=== PATIENT | male | born 1985 | race African-American/Black ===

== ENCOUNTER 2020-07-14 02:31 | Emergency (ER) | payer SELFPAY ==
[2020-07-14] MEDS ORDERED: Fluorescein Opthalmic Strip ONE (04:07)
[2020-07-14] MEDS ORDERED: Proparacaine 0.5% Opth 15 ML BOT ONE (04:07)
== END 2020-07-14 04:30 | disposition home or self-care (01) ==
LOC: ERS 02:31
DX: S02.832A Fracture of medial orbital wall, left side, initial encounter for closed fracture (principal); I10 Essential (primary) hypertension; F17.210 Nicotine dependence, cigarettes, uncomplicated; W50.0XXA Accidental hit or strike by another person, initial encounter
CPT/HCPCS: 70486

== ENCOUNTER 2020-08-06 13:47 | Observation (INO) | payer SELFPAY ==
[2020-08-06 15:15] LABS: #Basophils 0.1 thou/uL (0.0-0.2); #Eosinphils 0.1 thou/uL (0.0-0.7); #Lymphocytes 2.6 thou/uL (1.20-3.40); #Monocytes 0.8 thou/uL (0.11-0.59); #Neutrophils 6.6 thou/uL (1.40-6.50); %Basophils 1.4 % (0.0-1.0); %Eosinophils 0.9 % (0.0-10.0); %Lymphocytes 25.5 % (21.0-51.0); %Monocytes 7.3 % (0.0-10.0); %Neutrophils 64.8 % (42.0-75.0); Hemoglobin 13.8 g/dL (14.0-18.0); Mean Corpuscular HGB CONC 31.3 g/dL (32.0-36.0); Mean Corpuscular Hemoglobin 27.7 pg (27.0-31.0); Mean Corpuscular Volume 88.3 fL (78.0-98.0); Mean Platelet Volume 9.4 fL (7.4-10.4); Platelet Count 215 thou/uL (130-400); Red Blood Cell (RBC) Count 4.99 mill/uL (4.70-6.10); White Blood Cell (WBC) Count 10.2 thou/uL (4.8-10.8)
[2020-08-06 15:39] LABS: ALT (SGPT) 9 U/L (8-55); AST (SGOT) 16 U/L (5-34); Albumin 3.8 g/dL (3.5-5.0); Alkaline Phosphatase 70 U/L (40-110); Anion Gap 12 mmol/L (10-20); BUN (Urea Nitrogen) 13 mg/dL (8.9-20.6); Bilirubin, Total 0.4 mg/dL (0.2-1.2); CK (CPK) 194 U/L (30-200); Calc. Creatinine Clearance 0 mL/min (70-130); Calcium 8.9 mg/dL (7.8-10.44); Carbon Dioxide 23 mmol/L (22-29); Chloride 109 mmol/L (98-107); Globulin 3.3 g/dL (2.4-3.5); Glucose 87 mg/dL (70-105); Protein, Total 7.1 g/dL (6.0-8.3); Sodium 140 mmol/L (136-145)
[2020-08-06] MEDS ORDERED: hydrALAZINE 20 MG/ML VIAL ONE (15:53)
[2020-08-06 16:01] LABS: CKMB 2.5 ng/mL (0-6.6)
[2020-08-06] MEDS ORDERED: Aspirin Chewable 81 MG TAB ONE (16:04)
[2020-08-06] MEDS ORDERED: Nitroglycerin 2% Ointment 1 INCH/1 GM Packet ONE (16:34)
[2020-08-06] MEDS ORDERED: Labetalol HCl 100 MG/20 ML VIAL ONE ×2 (17:55→17:57)
[2020-08-06] MEDS ORDERED: Acetaminophen 500 MG TAB ONE (18:22)
[2020-08-06] MEDS ORDERED: Acetaminophen 650 MG Suppository PR PRN (18:29)
[2020-08-06 18:34] LABS: Troponin I 0.026 ng/mL (< 0.028)
[2020-08-06] MEDS ORDERED: hydrALAZINE 20 MG/ML VIAL SLOW IVP PRN (18:37)
[2020-08-06 21:28] LABS: Troponin I 0.031 ng/mL (< 0.028)
[2020-08-06 21:36] VITALS: BMI 29.2
[2020-08-07] MEDS: Acetaminophen 325 MG TAB PO PRN ×2 (01:52→14:01)
[2020-08-07] MEDS ORDERED: Sodium Chloride 0.45% 1,000 ML IV SCH (02:15)
[2020-08-07] MEDS ORDERED: Amlodipine 5 MG TAB PO SCH (02:15)
[2020-08-07 02:34] LABS: #Basophils 0.1 thou/uL (0.0-0.2); #Eosinphils 0.1 thou/uL (0.0-0.7); #Lymphocytes 3.1 thou/uL (1.20-3.40); #Neutrophils 7.3 thou/uL (1.40-6.50); %Basophils 0.9 % (0.0-1.0); %Eosinophils 1.1 % (0.0-10.0); %Lymphocytes 26.9 % (21.0-51.0); %Monocytes 8.2 % (0.0-10.0); %Neutrophils 62.9 % (42.0-75.0); Hemoglobin 12.7 g/dL (14.0-18.0); Mean Corpuscular HGB CONC 30.4 g/dL (32.0-36.0); Mean Corpuscular Hemoglobin 26.8 pg (27.0-31.0); Mean Corpuscular Volume 88.2 fL (78.0-98.0); Mean Platelet Volume 9.1 fL (7.4-10.4); Platelet Count 205 thou/uL (130-400); Red Blood Cell (RBC) Count 4.74 mill/uL (4.70-6.10); White Blood Cell (WBC) Count 11.5 thou/uL (4.8-10.8)
[2020-08-07 02:54] LABS: Magnesium 1.8 mg/dL (1.6-2.6)
[2020-08-07 03:03] LABS: Anion Gap 14 mmol/L (10-20); BUN (Urea Nitrogen) 16 mg/dL (8.9-20.6); Calc. Creatinine Clearance 116 mL/min (70-130); Carbon Dioxide 23 mmol/L (22-29); Chloride 106 mmol/L (98-107); Cholesterol 155 mg/dl (< 200 Desired); Glucose 98 mg/dL (70-105); HDL Cholesterol 31 mg/dL (>60 Neg Risk); LDL Cholesterol, Calculated 107 mg/dL; Potassium 3.6 mmol/L (3.5-5.1); Sodium 139 mmol/L (136-145); Triglycerides 84 mg/dL (Less than 150)
[2020-08-07 03:17] LABS: CKMB 1.9 ng/mL (0-6.6)
[2020-08-07 04:48] LABS: Amphetamine Not Detected (NotDetected); Barbiturates Screen Not Detected (NotDetected); Benzodiazepine Screen Not Detected (NotDetected); Cocaine Metabolite Screen Not Detected (NotDetected); Medtox Control Line Valid? VALID (VALID); Medtox Reader # READER 1; Methadone Not Detected (NotDetected); Methamphetamine Not Detected (NotDetected); Opiate Screen Not Detected (NotDetected); Oxycodone Screen Not Detected (NotDetected); Phencyclidine (PCP) Not Detected (NotDetected); THC/Cannabinoid Screen Not Detected (NotDetected); Tricyclic Screen Not Detected (NotDetected)
[2020-08-07] MEDS ORDERED: Magnesium 2 GM/50 ML 2 GM in Premix Bag 1 BAG IVPB SCH (05:00)
[2020-08-07] MEDS ORDERED: hydrALAZINE 25 MG TAB PO SCH ×2 (12:00→15:00)
[2020-08-07 12:33] VITALS: BP 173/101; TEMP 98.2
[2020-08-08] MEDS ORDERED: Amlodipine 5 MG TAB PO SCH (09:00)
== END 2020-08-07 14:25 | disposition home or self-care (01) ==
LOC: ERS 13:47 → INTOOBSV 16:48 → ERHOLD 16:48 → 2SW 20:27
PROVIDERS: ADMIT Internal Medicine; ATTEND Internal Medicine
DX: I16.0 Hypertensive urgency (principal); I11.9 Hypertensive heart disease without heart failure; N17.9 Acute kidney failure, unspecified; F17.210 Nicotine dependence, cigarettes, uncomplicated; R51.9 Headache, unspecified; I08.3 Combined rheumatic disorders of mitral, aortic and tricuspid valves
CPT/HCPCS: 36415; 71045; 80048; 80053; 80061; 80306; 82550; 82553; 83735; 83880; 84484; 85025; 93005; 93306; 96374; 96375; G0378; J0360; J3475

== ENCOUNTER 2021-01-27 22:00 | Emergency (ER) | payer SELFPAY ==
[2021-01-27 22:39] LABS: Bacteria/HPF None Seen HPF (None Seen); Bilirubin Negative (Negative); Blood, Urine 1+ (Negative); Clarity Turbid (Clear); Glucose, Urine (Dipstick) Normal (Negative); Ketone, Urine Trace mg/dL (Negative); Leukocyte 500 Leu/uL (Negative); Nitrite Negative (Negative); Protein, Urine (Dipstick) 100 mg/dL (Neg-Trace); Specific Gravity, Urine 1.039 (1.002-1.036); Squamous Epithelial 0-3 HPF (0-3); WBC/HPF Greater than 50 HPF (0-3)
[2021-01-27] MEDS ORDERED: cefTRIAXone\\ROCEPHIN 500 MG VIAL ONE (22:53)
[2021-01-27] MEDS ORDERED: Sterile Water 10 ML ONE (22:53)
[2021-01-27] MEDS ORDERED: Lidocaine 1% PF 5 ML VIAL ONE (22:54)
[2021-01-30 20:36] LABS: Chlam.trachomatis by PCR,Urine DETECTED (NotDetected)
== END 2021-01-27 23:03 | disposition home or self-care (01) ==
LOC: ERS 22:00
DX: N34.2 Other urethritis (principal); I10 Essential (primary) hypertension; F17.210 Nicotine dependence, cigarettes, uncomplicated
CPT/HCPCS: 81003; 81015; 87491; 87591; 96372; 99283; J0696

== ENCOUNTER 2021-08-23 23:44 | Emergency (ER) | payer SELFPAY ==
[2021-08-24] MEDS ORDERED: cefTRIAXone\\ROCEPHIN 500 MG VIAL ONE (00:20)
[2021-08-24] MEDS ORDERED: Azithromycin 250 MG TAB ONE (00:20)
[2021-08-24] MEDS ORDERED: Lidocaine 1% PF 5 ML VIAL ONE (00:21)
[2021-08-24 00:51] LABS: Bacteria/HPF None Seen HPF (None Seen); Bilirubin Negative (Negative); Blood, Urine Trace (Negative); Clarity Clear (Clear); Glucose, Urine (Dipstick) Normal (Negative); Ketone, Urine Negative (Negative); Leukocyte 250 Leu/uL (Negative); Nitrite Negative (Negative); Protein, Urine (Dipstick) 30 mg/dL (Neg-Trace); RBC/HPF 0-3 HPF (0-3); Specific Gravity, Urine 1.023 (1.002-1.036); Squamous Epithelial None Seen HPF (0-3); Urobilinogen Normal mg/dL (Less than 2); WBC/HPF Greater than 50 HPF (0-3)
[2021-08-24 18:41] LABS: Chlam.trachomatis by PCR,Urine DETECTED (NotDetected)
== END 2021-08-24 00:45 | disposition home or self-care (01) ==
LOC: ERS 23:44
DX: N34.1 Nonspecific urethritis (principal); I10 Essential (primary) hypertension; F17.210 Nicotine dependence, cigarettes, uncomplicated
CPT/HCPCS: 81003; 81015; 87491; 87591; 96372; 99283; J0696

== ENCOUNTER 2021-09-18 14:22 | Emergency (ER) | payer SELFPAY ==
[2021-09-18] MEDS ORDERED: Ondansetron ODT 4 MG TAB ONE (14:53)
== END 2021-09-18 15:25 | disposition home or self-care (01) ==
LOC: ERS 14:22
DX: R11.10 Vomiting, unspecified (principal); I10 Essential (primary) hypertension; F17.210 Nicotine dependence, cigarettes, uncomplicated
CPT/HCPCS: 99283; Q0162

== ENCOUNTER 2021-10-28 05:30 | Inpatient (IN) | payer SELFPAY ==
[2021-10-28] MEDS ORDERED: niCARdipine 25 MG/10 ML VIAL ONE (09:58)
[2021-10-28] MEDS ORDERED: niCARdipine 25 MG in Sodium Chloride 0.9% 250 ML 250 ML IVPB SCH ×2 (10:15→11:30)
[2021-10-28] MEDS ORDERED: Acetaminophen 325 MG TAB PO PRN (11:17)
[2021-10-28] MEDS: hydrALAZINE 25 MG TAB PO SCH ×2 (15:08→20:47)
[2021-10-28] MEDS ORDERED: Ibuprofen 200 MG TAB PO SCH (15:30)
[2021-10-28 15:50] VITALS: BMI 32.5
[2021-10-28] MEDS ORDERED: niCARdipine 50 MG in Sodium Chloride 0.9% 250 ML 230 ML IVPB SCH (17:00)
[2021-10-28] MEDS: niCARdipine 50 MG in Sodium Chloride 0.9% 250 ML 230 ML IV SCH ×2 (19:53→23:02)
[2021-10-29] MEDS: niCARdipine 50 MG in Sodium Chloride 0.9% 250 ML 230 ML IV SCH (02:26)
[2021-10-29] MEDS ORDERED: hydrALAZINE 20 MG/ML VIAL SLOW IVP PRN (08:09)
[2021-10-29 08:37] VITALS: BP 170/97
[2021-10-29 08:46] LABS: Anion Gap 15 mmol/L (10-20); BUN (Urea Nitrogen) 14 mg/dL (8.9-20.6); Calc. Creatinine Clearance 114 mL/min (70-130); Calcium 9.4 mg/dL (7.8-10.44); Carbon Dioxide 23 mmol/L (22-29); Chloride 106 mmol/L (98-107); Estimated GFR 68; Glucose 93 mg/dL (70-105); Potassium 3.5 mmol/L (3.5-5.1); Sodium 140 mmol/L (136-145)
[2021-10-29] MEDS ORDERED: Amlodipine 10 MG TAB PO SCH (09:00)
[2021-10-29] MEDS ORDERED: hydrALAZINE 25 MG TAB PO SCH (09:00)
[2021-10-29] MEDS ORDERED: Amlodipine 5 MG TAB PO SCH (09:00)
[2021-10-29 12:50] VITALS: TEMP 98.4
== END 2021-10-29 13:25 | disposition home or self-care (01) | DRG 305 ==
LOC: ERS 05:30 → ERHOLD 10:00 → CCU 14:43
PROVIDERS: ADMIT Internal Medicine; ATTEND Internal Medicine
DX: I16.1 Hypertensive emergency (principal); I42.9 Cardiomyopathy, unspecified; N17.9 Acute kidney failure, unspecified; Z20.822 Contact with and (suspected) exposure to COVID-19; I10 Essential (primary) hypertension; F17.210 Nicotine dependence, cigarettes, uncomplicated; Z79.899 Other long term (current) drug therapy; Z91.14 Patient's other noncompliance with medication regimen
CPT/HCPCS: 36415; J7050

== ENCOUNTER 2022-04-05 00:08 | Emergency (ER) | payer SELFPAY ==
[2022-04-05] MEDS ORDERED: Labetalol HCl 100 MG/20 ML VIAL ONE (00:41)
[2022-04-05 00:49] LABS: #Basophils 0.1 thou/uL (0.0-0.2); #Eosinphils 0.1 thou/uL (0.0-0.7); #Lymphocytes 2.2 thou/uL (1.20-3.40); #Monocytes 0.7 thou/uL (0.11-0.59); #Neutrophils 7.4 thou/uL (1.40-6.50); %Basophils 0.5 % (0.0-1.0); %Eosinophils 1.1 % (0.0-10.0); %Lymphocytes 21.4 % (21.0-51.0); %Monocytes 6.1 % (0.0-10.0); %Neutrophils 70.9 % (42.0-75.0); Hemoglobin 12.2 g/dL (14.0-18.0); Mean Corpuscular HGB CONC 31.4 g/dL (32.0-36.0); Mean Corpuscular Hemoglobin 28.4 pg (27.0-31.0); Mean Corpuscular Volume 90.4 fl (78.0-98.0); Mean Platelet Volume 8.6 fL (7.4-10.4); Platelet Count 219 10x3/uL (130-400); White Blood Cell (WBC) Count 10.5 10x3/uL (4.8-10.8)
[2022-04-05 01:10] LABS: Albumin 3.8 g/dL (3.5-5.0); Anion Gap 13 mmol/L (10-20); BUN (Urea Nitrogen) 17 mg/dL (8.9-20.6); Bilirubin, Total 0.4 mg/dL (0.2-1.2); Calc. Creatinine Clearance 0 mL/min (70-130); Calcium 8.8 mg/dL (7.8-10.44); Carbon Dioxide 22 mmol/L (22-29); Chloride 109 mmol/L (98-107); Estimated GFR 56; Glucose 98 mg/dL (70-105); Potassium 4.2 mmol/L (3.5-5.1); Protein, Total 7.2 g/dL (6.0-8.3); Sodium 140 mmol/L (136-145)
[2022-04-05 01:11] LABS: ALT (SGPT) 13 U/L (8-55); AST (SGOT) 16 U/L (5-34); Alkaline Phosphatase 71 U/L (40-110); Globulin 3.4 g/dL (2.4-3.5)
[2022-04-05 01:30] LABS: Bacteria/HPF None Seen HPF (None Seen); Bilirubin Negative (Negative); Blood, Urine Trace (Negative); Clarity Clear (Clear); Glucose, Urine (Dipstick) Normal (Negative); Ketone, Urine Negative (Negative); Leukocyte Negative Leu/uL (Negative); Nitrite Negative (Negative); Protein, Urine (Dipstick) 30 mg/dL (Neg-Trace); RBC/HPF 0-3 HPF (0-3); Specific Gravity, Urine 1.019 (1.002-1.036); Squamous Epithelial None Seen HPF (0-3); Urobilinogen Normal mg/dL (Less than 2); pH, Urine 6.5 (5.0-9.0)
[2022-04-05 01:32] LABS: CKMB 3.2 ng/mL (0-6.6)
== END 2022-04-05 01:48 | disposition left against medical advice (07) ==
LOC: ERS 00:08
DX: I16.0 Hypertensive urgency (principal); R77.8 Other specified abnormalities of plasma proteins; I10 Essential (primary) hypertension; F17.210 Nicotine dependence, cigarettes, uncomplicated
CPT/HCPCS: 71045; 80053; 81003; 81015; 82553; 83880; 84484; 85025; 93005; 96374

== ENCOUNTER 2022-04-05 10:01 | Inpatient (IN) | payer SELFPAY ==
[2022-04-05 11:03] LABS: #Lymphocytes 1.6 thou/uL (1.20-3.40); #Monocytes 0.6 thou/uL (0.11-0.59); #Neutrophils 6.6 thou/uL (1.40-6.50); %Eosinophils 0.4 % (0.0-10.0); %Lymphocytes 17.7 % (21.0-51.0); %Monocytes 6.7 % (0.0-10.0); %Neutrophils 75.2 % (42.0-75.0); Hemoglobin 12.3 g/dL (14.0-18.0); Mean Corpuscular HGB CONC 32.1 g/dL (32.0-36.0); Mean Corpuscular Volume 90.2 fl (78.0-98.0); Mean Platelet Volume 8.7 fL (7.4-10.4); Platelet Count 227 10x3/uL (130-400); Red Blood Cell (RBC) Count 4.24 mill/uL (4.70-6.10); White Blood Cell (WBC) Count 8.8 10x3/uL (4.8-10.8)
[2022-04-05 11:51] LABS: ALT (SGPT) 14 U/L (8-55); AST (SGOT) 17 U/L (5-34); Albumin 3.8 g/dL (3.5-5.0); Alkaline Phosphatase 69 U/L (40-110); Anion Gap 14 mmol/L (10-20); BUN (Urea Nitrogen) 14 mg/dL (8.9-20.6); Bilirubin, Total 0.8 mg/dL (0.2-1.2); Calc. Creatinine Clearance 0 mL/min (70-130); Calcium 8.7 mg/dL (7.8-10.44); Carbon Dioxide 22 mmol/L (22-29); Chloride 109 mmol/L (98-107); Estimated GFR 56; Globulin 3.3 g/dL (2.4-3.5); Glucose 94 mg/dL (70-105); Potassium 4.1 mmol/L (3.5-5.1); Protein, Total 7.1 g/dL (6.0-8.3); Sodium 141 mmol/L (136-145)
[2022-04-05 12:08] LABS: CKMB 3.2 ng/mL (0-6.6)
[2022-04-05 13:37] LABS: Bacteria/HPF None Seen HPF (None Seen); Bilirubin Negative (Negative); Blood, Urine Trace (Negative); Clarity Clear (Clear); Glucose, Urine (Dipstick) Normal (Negative); Ketone, Urine Negative (Negative); Leukocyte Negative Leu/uL (Negative); Nitrite Negative (Negative); Protein, Urine (Dipstick) 30 mg/dL (Neg-Trace); RBC/HPF 0-3 HPF (0-3); Specific Gravity, Urine 1.016 (1.002-1.036); Squamous Epithelial None Seen HPF (0-3); Urobilinogen Normal mg/dL (Less than 2); WBC/HPF 0-3 HPF (0-3)
[2022-04-05 13:39] LABS: Amphetamine Not Detected (NotDetected); Barbiturates Screen Not Detected (NotDetected); Benzodiazepine Screen Not Detected (NotDetected); Cocaine Metabolite Screen Not Detected (NotDetected); Methadone Not Detected (NotDetected); Methamphetamine Not Detected (NotDetected); Opiate Screen Not Detected (NotDetected); Oxycodone Screen Not Detected (NotDetected); Phencyclidine (PCP) Not Detected (NotDetected); THC/Cannabinoid Screen Not Detected (NotDetected); Tricyclic Screen Not Detected (NotDetected)
[2022-04-05] MEDS ORDERED: Nitroglycerin 2% Ointment 1 INCH/1 GM Packet ONE (13:56)
[2022-04-05] MEDS ORDERED: Aspirin Chewable 81 MG TAB ONE (13:56)
[2022-04-05] MEDS ORDERED: Acetaminophen 500 MG TAB ONE (13:56)
[2022-04-05] MEDS ORDERED: Furosemide 40 MG/4 ML VIAL ONE (13:56)
[2022-04-05] MEDS ORDERED: Nitroglycerin 0.4 MG TAB 1 EACH ONE (13:56)
[2022-04-05 16:17] LABS: Troponin I 0.057 ng/mL (< 0.028)
[2022-04-05 19:23] LABS: Troponin I 0.047 ng/mL (< 0.028)
[2022-04-05] MEDS: Heparin 5,000 UNITS/ML VIAL SC SCH (20:02)
[2022-04-05] MEDS: Lisinopril 10 MG TAB PO SCH (20:02)
[2022-04-06] MEDS ORDERED: hydrALAZINE 25 MG TAB PO SCH (00:15)
[2022-04-06] MEDS: Acetaminophen 325 MG TAB PO PRN (00:32)
[2022-04-06] MEDS ORDERED: Amlodipine 10 MG TAB PO SCH (00:45)
[2022-04-06] MEDS ORDERED: cloNIDine 0.1 MG TAB PO SCH (02:45)
[2022-04-06] MEDS: Furosemide 40 MG/4 ML VIAL SLOW IVP SCH ×2 (04:32→13:38)
[2022-04-06] MEDS: Aspirin Chewable 81 MG TAB PO SCH (08:02)
[2022-04-06] MEDS: Lisinopril 10 MG TAB PO SCH (08:02)
[2022-04-06] MEDS ORDERED: Carvedilol 3.125 MG TAB PO SCH (09:00)
[2022-04-06] MEDS ORDERED: FLU VACC QS2022-23(6MOS UP)/PF 60 MCG/0.5 ML SYRINGE IM ONE (09:00)
[2022-04-06] MEDS: Heparin 5,000 UNITS/ML VIAL SC SCH ×3 (09:20→19:57)
[2022-04-06] MEDS ORDERED: Spironolactone 25 MG TAB PO SCH (10:00)
[2022-04-06 11:30] LABS: #Basophils 0.1 thou/uL (0.0-0.2); #Eosinphils 0.1 thou/uL (0.0-0.7); #Lymphocytes 1.6 thou/uL (1.20-3.40); #Monocytes 0.7 thou/uL (0.11-0.59); #Neutrophils 7.1 thou/uL (1.40-6.50); %Basophils 0.6 % (0.0-1.0); %Eosinophils 0.8 % (0.0-10.0); %Lymphocytes 16.6 % (21.0-51.0); %Monocytes 6.9 % (0.0-10.0); Hemoglobin 13.7 g/dL (14.0-18.0); Mean Corpuscular HGB CONC 31.6 g/dL (32.0-36.0); Mean Corpuscular Hemoglobin 28.7 pg (27.0-31.0); Mean Corpuscular Volume 90.8 fl (78.0-98.0); Mean Platelet Volume 8.3 fL (7.4-10.4); Platelet Count 252 10x3/uL (130-400); RBC Distribution Width 12.9 % (11.5-14.5); White Blood Cell (WBC) Count 9.5 10x3/uL (4.8-10.8)
[2022-04-06 11:54] LABS: Anion Gap 13 mmol/L (10-20); BUN (Urea Nitrogen) 18 mg/dL (8.9-20.6); Calc. Creatinine Clearance 93 mL/min (70-130); Calcium 9.1 mg/dL (7.8-10.44); Carbon Dioxide 25 mmol/L (22-29); Chloride 105 mmol/L (98-107); Estimated GFR 53; Glucose 90 mg/dL (70-105); Potassium 3.9 mmol/L (3.5-5.1); Sodium 139 mmol/L (136-145)
[2022-04-06] MEDS: Carvedilol 6.25 MG TAB PO SCH (16:34)
[2022-04-06] MEDS: Lisinopril 20 MG TAB PO SCH (20:03)
[2022-04-07] MEDS: Furosemide 40 MG/4 ML VIAL SLOW IVP SCH ×2 (06:02→15:42)
[2022-04-07] MEDS ORDERED: Spironolactone 25 MG TAB PO SCH (08:00)
[2022-04-07] MEDS: Carvedilol 6.25 MG TAB PO SCH ×2 (08:15→17:37)
[2022-04-07] MEDS: Lisinopril 20 MG TAB PO SCH ×2 (08:15→20:37)
[2022-04-07] MEDS: Aspirin Chewable 81 MG TAB PO SCH (08:16)
[2022-04-07] MEDS: Heparin 5,000 UNITS/ML VIAL SC SCH ×2 (08:18→15:42)
[2022-04-07] MEDS: hydrALAZINE 25 MG TAB PO SCH (20:36)
[2022-04-07] MEDS: Isosorbide Dinitrate 5 MG TAB PO SCH (20:37)
[2022-04-07] MEDS: Acetaminophen 325 MG TAB PO PRN (20:37)
[2022-04-08] MEDS: Furosemide 40 MG/4 ML VIAL SLOW IVP SCH (06:54)
[2022-04-08 07:20] LABS: Anion Gap 13 mmol/L (10-20); BUN (Urea Nitrogen) 24 mg/dL (8.9-20.6); Calc. Creatinine Clearance 91 mL/min (70-130); Calcium 9.1 mg/dL (7.8-10.44); Carbon Dioxide 22 mmol/L (22-29); Chloride 105 mmol/L (98-107); Estimated GFR 55; Glucose 94 mg/dL (70-105); Potassium 3.8 mmol/L (3.5-5.1); Sodium 136 mmol/L (136-145)
[2022-04-08] MEDS: hydrALAZINE 25 MG TAB PO SCH ×2 (08:05→19:58)
[2022-04-08] MEDS: Carvedilol 6.25 MG TAB PO SCH ×2 (08:05→17:12)
[2022-04-08] MEDS: Lisinopril 20 MG TAB PO SCH ×2 (08:05→19:58)
[2022-04-08] MEDS: Spironolactone 25 MG TAB PO SCH (08:05)
[2022-04-08] MEDS: Aspirin Chewable 81 MG TAB PO SCH (08:05)
[2022-04-08] MEDS: Isosorbide Dinitrate 5 MG TAB PO SCH ×2 (08:06→19:58)
[2022-04-08] MEDS ORDERED: hydrALAZINE 25 MG TAB PO PRN (18:34)
[2022-04-08] MEDS: Acetaminophen 325 MG TAB PO PRN (20:01)
[2022-04-09] MEDS: Acetaminophen 325 MG TAB PO PRN ×4 (01:12→21:41)
[2022-04-09] MEDS ORDERED: hydrALAZINE 25 MG TAB PO SCH (08:00)
[2022-04-09] MEDS: Carvedilol 6.25 MG TAB PO SCH ×2 (08:02→16:13)
[2022-04-09] MEDS: Aspirin Chewable 81 MG TAB PO SCH (08:03)
[2022-04-09] MEDS: Isosorbide Dinitrate 5 MG TAB PO SCH ×2 (08:03→21:37)
[2022-04-09] MEDS: Lisinopril 20 MG TAB PO SCH ×2 (08:03→21:37)
[2022-04-09] MEDS: Spironolactone 25 MG TAB PO SCH (08:03)
[2022-04-09 09:46] LABS: Anion Gap 13 mmol/L (10-20); BUN (Urea Nitrogen) 23 mg/dL (8.9-20.6); Calc. Creatinine Clearance 91 mL/min (70-130); Calcium 9.1 mg/dL (7.8-10.44); Carbon Dioxide 24 mmol/L (22-29); Chloride 107 mmol/L (98-107); Estimated GFR 54; Glucose 146 mg/dL (70-105); Potassium 3.9 mmol/L (3.5-5.1); Sodium 140 mmol/L (136-145)
[2022-04-09] MEDS ORDERED: Nitroglycerin 0.4 MG TAB (25 Tab Bottle) SL PRN (13:57)
[2022-04-09 14:50] LABS: Troponin I 0.058 ng/mL (< 0.028)
[2022-04-09 17:35] LABS: Troponin I 0.041 ng/mL (< 0.028)
[2022-04-09] MEDS: hydrALAZINE 25 MG TAB PO SCH (21:36)
[2022-04-10] MEDS: hydrALAZINE 25 MG TAB PO SCH ×3 (08:24→21:58)
[2022-04-10] MEDS: Aspirin Chewable 81 MG TAB PO SCH (08:24)
[2022-04-10] MEDS: Carvedilol 6.25 MG TAB PO SCH (08:24)
[2022-04-10] MEDS: Isosorbide Dinitrate 5 MG TAB PO SCH ×2 (08:24→21:59)
[2022-04-10] MEDS: Lisinopril 20 MG TAB PO SCH ×2 (08:24→21:59)
[2022-04-10] MEDS: Spironolactone 25 MG TAB PO SCH (08:25)
[2022-04-10 09:46] LABS: #Basophils 0.1 thou/uL (0.0-0.2); #Eosinphils 0.1 thou/uL (0.0-0.7); #Lymphocytes 1.6 thou/uL (1.20-3.40); #Monocytes 0.6 thou/uL (0.11-0.59); #Neutrophils 6.2 thou/uL (1.40-6.50); %Basophils 0.7 % (0.0-1.0); %Lymphocytes 19.2 % (21.0-51.0); %Monocytes 7.3 % (0.0-10.0); %Neutrophils 71.9 % (42.0-75.0); Hemoglobin 13.3 g/dL (14.0-18.0); Mean Corpuscular HGB CONC 31.2 g/dL (32.0-36.0); Mean Corpuscular Hemoglobin 28.3 pg (27.0-31.0); Mean Corpuscular Volume 90.7 fl (78.0-98.0); Mean Platelet Volume 8.5 fL (7.4-10.4); Platelet Count 235 10x3/uL (130-400); RBC Distribution Width 12.9 % (11.5-14.5); Red Blood Cell (RBC) Count 4.72 mill/uL (4.70-6.10); White Blood Cell (WBC) Count 8.6 10x3/uL (4.8-10.8)
[2022-04-10 10:02] LABS: Anion Gap 13 mmol/L (10-20); BUN (Urea Nitrogen) 21 mg/dL (8.9-20.6); Calc. Creatinine Clearance 99 mL/min (70-130); Calcium 9.2 mg/dL (7.8-10.44); Carbon Dioxide 20 mmol/L (22-29); Chloride 108 mmol/L (98-107); Estimated GFR 61; Glucose 102 mg/dL (70-105); Potassium 4.1 mmol/L (3.5-5.1); Sodium 137 mmol/L (136-145)
[2022-04-10] MEDS ORDERED: HYDROcodone/Acetaminophen 5/325 mg Tablet PO PRN (12:21)
[2022-04-10] MEDS: Acetaminophen 325 MG TAB PO PRN (12:37)
[2022-04-10] MEDS: Carvedilol 25 MG TAB PO SCH (16:26)
[2022-04-10 17:52] VITALS: BMI 28.0
[2022-04-11] MEDS: Isosorbide Dinitrate 5 MG TAB PO SCH (08:11)
[2022-04-11] MEDS: hydrALAZINE 25 MG TAB PO SCH ×2 (08:11→15:11)
[2022-04-11] MEDS: Spironolactone 25 MG TAB PO SCH (08:11)
[2022-04-11] MEDS: Acetaminophen 325 MG TAB PO PRN (08:12)
[2022-04-11] MEDS: Aspirin Chewable 81 MG TAB PO SCH (08:12)
[2022-04-11] MEDS ORDERED: Hydrochlorothiazide 25 MG TAB PO SCH (09:00)
[2022-04-11 11:46] VITALS: BP 135/68; TEMP 97.5
[2022-04-11] MEDS: Lisinopril 20 MG TAB PO SCH (12:39)
[2022-04-11] MEDS: Carvedilol 25 MG TAB PO SCH (12:39)
[2022-04-11] MEDS ORDERED: Regadenoson 0.4 MG/5 ML SYRINGE ONE (13:58)
== END 2022-04-11 15:24 | disposition home or self-care (01) | DRG 291 ==
LOC: ERS 10:01 → ERHOLD 15:13 → 2SW 17:57 → OBSVTOIN 04-06 11:26
PROVIDERS: ADMIT Student in an Organized Health Care Education/Training Program; ATTEND Internal Medicine
DX: I13.0 Hypertensive heart and chronic kidney disease with heart failure and stage 1 through stage 4 chronic kidney disease, or unspecified chronic kidney disease (principal); I50.43 Acute on chronic combined systolic (congestive) and diastolic (congestive) heart failure; I16.1 Hypertensive emergency; N17.9 Acute kidney failure, unspecified; I24.8 Other forms of acute ischemic heart disease; I42.9 Cardiomyopathy, unspecified; F17.210 Nicotine dependence, cigarettes, uncomplicated; I42.8 Other cardiomyopathies; N18.30 Chronic kidney disease, stage 3 unspecified; Z91.14 Patient's other noncompliance with medication regimen
CPT/HCPCS: 36415; 71045; 76770; 78452; 80048; 80306; 82553; 83880; 84484; 85025; 93005; 93010; 93017; 93306; 93798; 93975; 96372; 96374; 96376; 97139; A9500; G0378; J1644; J1940; J2785; U0003; U0005

== ENCOUNTER 2022-04-23 07:14 | Inpatient (IN) | payer SELFPAY ==
[2022-04-23] MEDS ORDERED: Nitroglycerin 2% Ointment 1 INCH/1 GM Packet ONE (07:34)
[2022-04-23 07:53] LABS: #Basophils 0.1 thou/uL (0.0-0.2); #Eosinphils 0.1 thou/uL (0.0-0.7); #Lymphocytes 2.6 thou/uL (1.20-3.40); #Monocytes 0.9 thou/uL (0.11-0.59); #Neutrophils 6.8 thou/uL (1.40-6.50); %Basophils 0.5 % (0.0-1.0); %Eosinophils 1.2 % (0.0-10.0); %Lymphocytes 24.6 % (21.0-51.0); %Monocytes 8.7 % (0.0-10.0); Hemoglobin 13.4 g/dL (14.0-18.0); Mean Corpuscular HGB CONC 31.9 g/dL (32.0-36.0); Mean Corpuscular Hemoglobin 28.6 pg (27.0-31.0); Mean Corpuscular Volume 89.5 fl (78.0-98.0); Mean Platelet Volume 9.3 fL (7.4-10.4); Platelet Count 252 10x3/uL (130-400); RBC Distribution Width 12.7 % (11.5-14.5); Red Blood Cell (RBC) Count 4.67 mill/uL (4.70-6.10); White Blood Cell (WBC) Count 10.4 10x3/uL (4.8-10.8)
[2022-04-23 08:04] LABS: PTT 33.5 sec (22.9-36.1)
[2022-04-23] MEDS ORDERED: niCARdipine 25 MG/10 ML VIAL ONE ×2 (08:09→11:04)
[2022-04-23 08:17] LABS: ALT (SGPT) 16 U/L (8-55); AST (SGOT) 18 U/L (5-34); Albumin 3.8 g/dL (3.5-5.0); Alkaline Phosphatase 64 U/L (40-110); Anion Gap 13 mmol/L (10-20); BUN (Urea Nitrogen) 17 mg/dL (8.9-20.6); Bilirubin, Total 0.2 mg/dL (0.2-1.2); Calc. Creatinine Clearance 0 mL/min (70-130); Calcium 9.2 mg/dL (7.8-10.44); Carbon Dioxide 22 mmol/L (22-29); Chloride 108 mmol/L (98-107); Digoxin Less than 0.15 ng/mL (0.8-2.0); Estimated GFR 63; Globulin 3.4 g/dL (2.4-3.5); Glucose 98 mg/dL (70-105); Lipase 50 U/L (8-78); Potassium 4.1 mmol/L (3.5-5.1); Protein, Total 7.2 g/dL (6.0-8.3); Sodium 139 mmol/L (136-145)
[2022-04-23] MEDS ORDERED: Morphine 4 MG/ML VIAL ONE (08:18)
[2022-04-23] MEDS ORDERED: Ondansetron PF 4 MG/2 ML Vial ONE (08:18)
[2022-04-23 08:25] LABS: Amphetamine Not Detected (NotDetected); Barbiturates Screen Not Detected (NotDetected); Benzodiazepine Screen Not Detected (NotDetected); Cocaine Metabolite Screen Not Detected (NotDetected); Methadone Not Detected (NotDetected); Methamphetamine Not Detected (NotDetected); Opiate Screen Not Detected (NotDetected); Oxycodone Screen Not Detected (NotDetected); Phencyclidine (PCP) Not Detected (NotDetected); THC/Cannabinoid Screen Not Detected (NotDetected); Tricyclic Screen Not Detected (NotDetected)
[2022-04-23] MEDS ORDERED: Furosemide 40 MG/4 ML VIAL ONE (08:34)
[2022-04-23 08:38] LABS: CKMB 2.9 ng/mL (0-6.6)
[2022-04-23] MEDS ORDERED: Morphine 2 MG/ML VIAL SLOW IVP PRN (09:21)
[2022-04-23] MEDS ORDERED: Ondansetron PF 4 MG/2 ML Vial IVP PRN (09:21)
[2022-04-23] MEDS ORDERED: niCARdipine 25 MG in Sodium Chloride 0.9% 250 ML 250 ML IVPB SCH (09:30)
[2022-04-23] MEDS ORDERED: Lisinopril 20 MG TAB PO SCH (09:30)
[2022-04-23 11:04] LABS: Troponin I 0.026 ng/mL (< 0.028)
[2022-04-23 12:15] VITALS: BMI 28.8
[2022-04-23] MEDS: Acetaminophen 325 MG TAB PO PRN ×3 (12:27→22:49)
[2022-04-23] MEDS: Morphine 4 MG/ML VIAL SLOW IVP PRN ×2 (12:33→17:31)
[2022-04-23 12:53] LABS: SARS-CoV-2 NAA Rapid Test Not Detected (NotDetected)
[2022-04-23 14:11] LABS: Troponin I 0.034 ng/mL (< 0.028)
[2022-04-23] MEDS: Enoxaparin Sodium 100 MG/ML SYRINGE SC SCH ×2 (14:28→21:05)
[2022-04-23] MEDS: hydrALAZINE 25 MG TAB PO SCH ×2 (14:28→21:04)
[2022-04-23] MEDS: Carvedilol 25 MG TAB PO SCH (14:29)
[2022-04-23] MEDS ORDERED: cloNIDine 0.1 MG TAB PO PRN (14:37)
[2022-04-23] MEDS ORDERED: NIFEdipine XL 60 MG TAB PO SCH (14:45)
[2022-04-23] MEDS ORDERED: Non-Formulary Item 1 EACH (Hydralazine Hcl [Hydralazine Hcl] 100 MG Tablet) PO SCH (15:00)
[2022-04-23] MEDS ORDERED: FLU VACC QS2022-23(6MOS UP)/PF 60 MCG/0.5 ML SYRINGE IM ONE (18:00)
[2022-04-23] MEDS ORDERED: Non-Formulary Item 1 EACH (Isosorbide Dinitrate [Isordil] 10 MG Tab) PO SCH (21:00)
[2022-04-23] MEDS ORDERED: Famotidine 20 MG TAB PO SCH (21:00)
[2022-04-23] MEDS ORDERED: Isosorbide Dinitrate 5 MG TAB PO SCH (21:00)
[2022-04-23] MEDS: Lisinopril 20 MG TAB PO SCH (21:04)
[2022-04-23] MEDS: Atorvastatin Calcium 40 MG TAB PO SCH (21:04)
[2022-04-24 05:32] LABS: #Basophils 0.1 thou/uL (0.0-0.2); #Eosinphils 0.2 thou/uL (0.0-0.7); #Lymphocytes 1.7 thou/uL (1.20-3.40); #Monocytes 0.7 thou/uL (0.11-0.59); %Basophils 0.7 % (0.0-1.0); %Eosinophils 1.6 % (0.0-10.0); %Lymphocytes 17.5 % (21.0-51.0); %Monocytes 6.9 % (0.0-10.0); %Neutrophils 73.3 % (42.0-75.0); Mean Corpuscular HGB CONC 32.6 g/dL (32.0-36.0); Mean Corpuscular Hemoglobin 29.2 pg (27.0-31.0); Mean Corpuscular Volume 89.4 fl (78.0-98.0); Mean Platelet Volume 8.7 fL (7.4-10.4); Platelet Count 284 10x3/uL (130-400); RBC Distribution Width 12.8 % (11.5-14.5); Red Blood Cell (RBC) Count 5.13 mill/uL (4.70-6.10); White Blood Cell (WBC) Count 9.5 10x3/uL (4.8-10.8)
[2022-04-24 05:43] LABS: Anion Gap 13 mmol/L (10-20); BUN (Urea Nitrogen) 20 mg/dL (8.9-20.6); Calc. Creatinine Clearance 92 mL/min (70-130); Calcium 9.5 mg/dL (7.8-10.44); Carbon Dioxide 26 mmol/L (22-29); Estimated GFR 55; Glucose 99 mg/dL (70-105); Sodium 139 mmol/L (136-145)
[2022-04-24 05:50] LABS: Chloride 104 mmol/L (98-107)
[2022-04-24] MEDS: Carvedilol 25 MG TAB PO SCH ×2 (09:45→15:29)
[2022-04-24] MEDS: NIFEdipine XL 60 MG TAB PO SCH (09:45)
[2022-04-24] MEDS: Aspirin 81 mg Enteric Coated Tablet PO SCH (09:45)
[2022-04-24] MEDS: hydrALAZINE 25 MG TAB PO SCH ×3 (09:45→21:08)
[2022-04-24] MEDS: Lisinopril 20 MG TAB PO SCH ×2 (09:46→21:08)
[2022-04-24] MEDS: Spironolactone 25 MG TAB PO SCH (09:46)
[2022-04-24] MEDS: Enoxaparin Sodium 100 MG/ML SYRINGE SC SCH (09:46)
[2022-04-24] MEDS ORDERED: Diazepam 5 MG TAB PO SCH (17:45)
[2022-04-24] MEDS ORDERED: Communication Order-Pharmacy FS SCH (17:45)
[2022-04-24] MEDS ORDERED: Sodium Chloride 0.9% 1,000 ML IV SCH (17:45)
[2022-04-24] MEDS: Atorvastatin Calcium 40 MG TAB PO SCH (21:09)
[2022-04-25] MEDS: Carvedilol 25 MG TAB PO SCH ×2 (05:33→16:15)
[2022-04-25] MEDS: Lisinopril 20 MG TAB PO SCH (05:34)
[2022-04-25] MEDS: Aspirin 81 mg Enteric Coated Tablet PO SCH (05:34)
[2022-04-25] MEDS: hydrALAZINE 25 MG TAB PO SCH ×2 (05:34→16:15)
[2022-04-25] MEDS: NIFEdipine XL 60 MG TAB PO SCH (05:35)
[2022-04-25] MEDS ORDERED: Lidocaine 1% PF 5 ML VIAL ONE (07:59)
[2022-04-25] MEDS ORDERED: Nitroglycerin 100MG/250ML BOT 250 ML ONE (07:59)
[2022-04-25] MEDS ORDERED: Heparin 10,000 UNITS/ 10 ML VIAL ONE (07:59)
[2022-04-25] MEDS ORDERED: Verapamil 5 MG/2 ML VIAL ONE (07:59)
[2022-04-25] MEDS ORDERED: Diazepam 5 MG TAB PO SCH (08:30)
[2022-04-25] MEDS ORDERED: FENTANYL 50 MCG/ML 1 ML VIAL ONE (08:38)
[2022-04-25] MEDS ORDERED: Midazolam HCl 2 mg/2 ml Vial ONE (08:38)
[2022-04-25] MEDS ORDERED: Iopamidol 370 76% 100 ML VIAL ONE (08:45)
[2022-04-25] MEDS ORDERED: Acetaminophen/Codeine 30-300mg Tablet PO PRN (09:12)
[2022-04-25] MEDS ORDERED: Sodium Chloride 0.9% 200 ML IV PRN (09:12)
[2022-04-25] MEDS ORDERED: Sodium Chloride 0.9% 500 ML IV SCH (09:15)
[2022-04-25 10:02] VITALS: TEMP 97.8
[2022-04-25] MEDS: Spironolactone 25 MG TAB PO SCH (12:10)
[2022-04-25 16:18] VITALS: BP 140/80
== END 2022-04-25 16:55 | disposition home or self-care (01) | DRG 287 ==
LOC: ERS 07:14 → SUATTDRO 07:14 → CCU 09:19 → 2SW 22:39
PROVIDERS: ADMIT Internal Medicine; ATTEND Internal Medicine
PROC: 4A023N7 Measurement of Cardiac Sampling and Pressure, Left Heart, Percutaneous Approach (ICD-10-PCS; principal; 2022-04-25)
PROC: B2111ZZ Fluoroscopy of Multiple Coronary Arteries using Low Osmolar Contrast (ICD-10-PCS; 2022-04-25)
PROC: B2151ZZ Fluoroscopy of Left Heart using Low Osmolar Contrast (ICD-10-PCS; 2022-04-25)
DX: I16.1 Hypertensive emergency (principal); I43 Cardiomyopathy in diseases classified elsewhere; I42.0 Dilated cardiomyopathy; I50.22 Chronic systolic (congestive) heart failure; N18.2 Chronic kidney disease, stage 2 (mild); I13.0 Hypertensive heart and chronic kidney disease with heart failure and stage 1 through stage 4 chronic kidney disease, or unspecified chronic kidney disease; F17.210 Nicotine dependence, cigarettes, uncomplicated; Z79.899 Other long term (current) drug therapy; Z82.49 Family history of ischemic heart disease and other diseases of the circulatory system
CPT/HCPCS: 36415; 71045; 80048; 80053; 80162; 80306; 82553; 83690; 83880; 84484; 85025; 85610; 85730; 93005; 93458; 94760; 96365; 96366; 96374; 96375; 99152; C1769; C1894; J1644; J1940; J2250; J2270; J2405; J3010; J7030; J7050

== ENCOUNTER 2022-12-18 11:30 | Inpatient (IN) | payer SELFPAY ==
[2022-12-18 13:11] LABS: #Eosinphils 0.1 thou/uL (0.0-0.7); #Monocytes 0.5 thou/uL (0.11-0.59); #Neutrophils 5.5 thou/uL (1.40-6.50); %Basophils 0.4 % (0.0-1.0); %Lymphocytes 21.6 % (21.0-51.0); %Neutrophils 70.6 % (42.0-75.0); Hematocrit 37.9 % (42.0-52.0); Hemoglobin 12.2 g/dL (14.0-18.0); Mean Corpuscular HGB CONC 32.2 g/dL (32.0-36.0); Mean Corpuscular Hemoglobin 28.2 pg (27.0-31.0); Mean Corpuscular Volume 87.7 fl (78.0-98.0); Mean Platelet Volume 11.1 fL (7.4-10.4); Platelet Count 241 10x3/uL (130-400); RBC Distribution Width 14.3 % (11.5-14.5); Red Blood Cell (RBC) Count 4.32 mill/uL (4.70-6.10); White Blood Cell (WBC) Count 7.8 10x3/uL (4.8-10.8)
[2022-12-18 13:28] LABS: Troponin I 0.056 ng/mL (< 0.028)
[2022-12-18 13:31] LABS: ALT (SGPT) 9 U/L (8-55); AST (SGOT) 16 U/L (5-34); Albumin 3.7 g/dL (3.5-5.0); Alkaline Phosphatase 65 U/L (40-110); Anion Gap 11 mmol/L (10-20); BUN (Urea Nitrogen) 15 mg/dL (8.9-20.6); Bilirubin, Total 0.6 mg/dL (0.2-1.2); Calc. Creatinine Clearance 0 mL/min (70-130); Carbon Dioxide 25 mmol/L (22-29); Chloride 106 mmol/L (98-107); Estimated GFR 57; Globulin 3.4 g/dL (2.4-3.5); Glucose 114 mg/dL (70-105); Potassium 3.7 mmol/L (3.5-5.1); Protein, Total 7.1 g/dL (6.0-8.3); Sodium 138 mmol/L (136-145)
[2022-12-18] MEDS ORDERED: hydrALAZINE 25 MG TAB ONE (13:35)
[2022-12-18] MEDS ORDERED: Hydrochlorothiazide 25 MG TAB PO SCH (13:45)
[2022-12-18] MEDS ORDERED: Carvedilol 25 MG TAB PO SCH (13:45)
[2022-12-18] MEDS ORDERED: Nitroglycerin 0.4 MG TAB 1 EACH ONE ×2 (14:14→14:48)
[2022-12-18] MEDS ORDERED: Labetalol HCl 100 MG/20 ML VIAL ONE (15:37)
[2022-12-18] MEDS ORDERED: dilTIAZem 125 MG/25 ML SDV ONE (16:25)
[2022-12-18] MEDS ORDERED: Furosemide 40 MG/4 ML VIAL ONE (16:25)
[2022-12-18] MEDS ORDERED: Nitroglycerin 2% Ointment 1 INCH/1 GM Packet ONE (16:25)
[2022-12-18] MEDS ORDERED: niCARdipine 25 MG/10 ML SDV ONE (16:33)
[2022-12-18] MEDS ORDERED: Ondansetron PF 4 MG/2 ML Vial IVP PRN (20:18)
[2022-12-18] MEDS ORDERED: Ondansetron ODT 4 MG TAB PO PRN (20:18)
[2022-12-18] MEDS ORDERED: Acetaminophen 500 MG TAB ONE (20:19)
[2022-12-18] MEDS: hydrALAZINE 25 MG TAB PO SCH (21:34)
[2022-12-18] MEDS: Famotidine 20 MG TAB PO SCH (21:34)
[2022-12-18] MEDS: Lisinopril 20 MG TAB PO SCH (21:35)
[2022-12-18] MEDS: Nitroglycerin 2% Ointment 1 INCH/1 GM Packet TOP SCH (21:35)
[2022-12-18 21:47] LABS: Amphetamine Not Detected (NotDetected); Barbiturates Screen Not Detected (NotDetected); Benzodiazepine Screen Not Detected (NotDetected); Cocaine Metabolite Screen Not Detected (NotDetected); Methadone Not Detected (NotDetected); Methamphetamine Not Detected (NotDetected); Opiate Screen Not Detected (NotDetected); Oxycodone Screen Not Detected (NotDetected); Phencyclidine (PCP) Not Detected (NotDetected); THC/Cannabinoid Screen Not Detected (NotDetected); Tricyclic Screen Not Detected (NotDetected)
[2022-12-18] MEDS: HYDROcodone/Acetaminophen 5/325 mg Tablet PO PRN (21:49)
[2022-12-18] MEDS ORDERED: niCARdipine 25 MG in Sodium Chloride 0.9% 250 ML 250 ML IVPB SCH (22:00)
[2022-12-18] MEDS: Heparin 5,000 UNITS/ML VIAL SC SCH (22:18)
[2022-12-18 22:29] LABS: Troponin I 0.076 ng/mL (< 0.028)
[2022-12-18] MEDS: Nicotine 21 MG PATCH TD SCH (23:45)
[2022-12-19 05:05] LABS: #Monocytes 0.5 thou/uL (0.11-0.59); %Basophils 0.3 % (0.0-1.0); %Eosinophils 0.1 % (0.0-10.0); %Lymphocytes 10.4 % (21.0-51.0); %Monocytes 5.3 % (0.0-10.0); %Neutrophils 83.7 % (42.0-75.0); Hematocrit 42.8 % (42.0-52.0); Hemoglobin 13.8 g/dL (14.0-18.0); Mean Corpuscular HGB CONC 32.2 g/dL (32.0-36.0); Mean Corpuscular Hemoglobin 28.2 pg (27.0-31.0); Mean Corpuscular Volume 87.5 fl (78.0-98.0); Mean Platelet Volume 10.8 fL (7.4-10.4); Platelet Count 260 10x3/uL (130-400); RBC Distribution Width 14.5 % (11.5-14.5); Red Blood Cell (RBC) Count 4.89 mill/uL (4.70-6.10); White Blood Cell (WBC) Count 9.6 10x3/uL (4.8-10.8)
[2022-12-19 05:22] VITALS: BMI 27.0
[2022-12-19 05:27] LABS: Anion Gap 16 mmol/L (10-20); BUN (Urea Nitrogen) 18 mg/dL (8.9-20.6); Calc. Creatinine Clearance 82 mL/min (70-130); Calcium 9.7 mg/dL (7.8-10.44); Carbon Dioxide 24 mmol/L (22-29); Cardiac Risk 5.1 (Less than 4.5); Chloride 105 mmol/L (98-107); Cholesterol 200 mg/dl (< 200 Desired); Estimated GFR 52; Glucose 104 mg/dL (70-105); HDL Cholesterol 39 mg/dL (>60 Neg Risk); LDL Cholesterol, Calculated 147 mg/dL; Potassium 3.5 mmol/L (3.5-5.1); Sodium 141 mmol/L (136-145); Triglycerides 72 mg/dL (Less than 150)
[2022-12-19] MEDS: Carvedilol 25 MG TAB PO SCH ×2 (07:49→17:13)
[2022-12-19] MEDS: Spironolactone 25 MG TAB PO SCH (07:50)
[2022-12-19] MEDS: Aspirin Chewable 81 MG TAB PO SCH (07:50)
[2022-12-19] MEDS: Famotidine 20 MG TAB PO SCH ×2 (07:50→20:58)
[2022-12-19] MEDS: HYDROcodone/Acetaminophen 5/325 mg Tablet PO PRN ×2 (07:56→20:58)
[2022-12-19] MEDS ORDERED: NIFEdipine XL 60 MG TAB PO SCH (09:00)
[2022-12-19] MEDS: hydrALAZINE 25 MG TAB PO SCH ×3 (09:01→20:59)
[2022-12-19] MEDS: Nitroglycerin 2% Ointment 1 INCH/1 GM Packet TOP SCH ×2 (09:02→21:01)
[2022-12-19] MEDS: Lisinopril 20 MG TAB PO SCH ×2 (09:02→20:59)
[2022-12-19] MEDS: Heparin 5,000 UNITS/ML VIAL SC SCH ×2 (09:13→21:00)
[2022-12-19] MEDS: Acetaminophen 325 MG TAB PO PRN ×2 (11:51→16:34)
[2022-12-19] MEDS ORDERED: Ibuprofen 100 MG/5 ML UDCUP PO SCH (11:57)
[2022-12-19] MEDS: Carvedilol 6.25 MG TAB PO SCH (18:43)
[2022-12-19] MEDS: Nicotine 21 MG PATCH TD SCH (21:00)
[2022-12-20 07:38] LABS: #Eosinphils 0.1 thou/uL (0.0-0.7); #Monocytes 0.9 thou/uL (0.11-0.59); #Neutrophils 7.2 thou/uL (1.40-6.50); %Basophils 0.4 % (0.0-1.0); %Eosinophils 0.5 % (0.0-10.0); %Neutrophils 71.8 % (42.0-75.0); Hematocrit 45.1 % (42.0-52.0); Hemoglobin 14.6 g/dL (14.0-18.0); Mean Corpuscular HGB CONC 32.4 g/dL (32.0-36.0); Mean Corpuscular Hemoglobin 28.1 pg (27.0-31.0); Mean Corpuscular Volume 86.7 fl (78.0-98.0); Mean Platelet Volume 10.7 fL (7.4-10.4); Platelet Count 277 10x3/uL (130-400); RBC Distribution Width 14.7 % (11.5-14.5)
[2022-12-20 08:01] LABS: Anion Gap 14 mmol/L (10-20); BUN (Urea Nitrogen) 24 mg/dL (8.9-20.6); Calc. Creatinine Clearance 71 mL/min (70-130); Calcium 9.6 mg/dL (7.8-10.44); Carbon Dioxide 23 mmol/L (22-29); Chloride 103 mmol/L (98-107); Estimated GFR 44; Glucose 94 mg/dL (70-105); Potassium 3.3 mmol/L (3.5-5.1); Sodium 137 mmol/L (136-145)
[2022-12-20] MEDS: Heparin 5,000 UNITS/ML VIAL SC SCH ×2 (08:10→20:52)
[2022-12-20] MEDS: hydrALAZINE 25 MG TAB PO SCH ×3 (09:53→20:51)
[2022-12-20] MEDS: Famotidine 20 MG TAB PO SCH ×2 (09:53→20:51)
[2022-12-20] MEDS: NIFEdipine XL 90 MG TAB PO SCH (09:53)
[2022-12-20] MEDS: Carvedilol 6.25 MG TAB PO SCH ×2 (09:53→17:32)
[2022-12-20] MEDS: Aspirin Chewable 81 MG TAB PO SCH (09:53)
[2022-12-20] MEDS: Spironolactone 25 MG TAB PO SCH (09:54)
[2022-12-20] MEDS: Nitroglycerin 2% Ointment 1 INCH/1 GM Packet TOP SCH ×2 (09:54→21:18)
[2022-12-20] MEDS: Lisinopril 20 MG TAB PO SCH (09:54)
[2022-12-20] MEDS: Acetaminophen 325 MG TAB PO PRN ×2 (12:12→23:25)
[2022-12-20] MEDS: HYDROcodone/Acetaminophen 5/325 mg Tablet PO PRN (20:51)
[2022-12-20] MEDS: Nicotine 21 MG PATCH TD SCH (20:52)
[2022-12-20] MEDS ORDERED: Morphine 4 MG/ML VIAL SLOW IVP SCH (21:30)
[2022-12-21 05:20] LABS: Anion Gap 14 mmol/L (10-20); BUN (Urea Nitrogen) 25 mg/dL (8.9-20.6); Calc. Creatinine Clearance 76 mL/min (70-130); Calcium 9.8 mg/dL (7.8-10.44); Carbon Dioxide 23 mmol/L (22-29); Chloride 104 mmol/L (98-107); Estimated GFR 48; Glucose 92 mg/dL (70-105); Potassium 3.3 mmol/L (3.5-5.1); Sodium 138 mmol/L (136-145)
[2022-12-21] MEDS: Carvedilol 6.25 MG TAB PO SCH ×2 (09:09→15:57)
[2022-12-21] MEDS: Potassium Chloride 20 MEQ TAB PO SCH ×2 (09:11→15:58)
[2022-12-21] MEDS: hydrALAZINE 25 MG TAB PO SCH ×2 (09:11→15:57)
[2022-12-21] MEDS: Aspirin Chewable 81 MG TAB PO SCH (09:13)
[2022-12-21] MEDS: Spironolactone 25 MG TAB PO SCH (09:13)
[2022-12-21] MEDS: NIFEdipine XL 90 MG TAB PO SCH (09:13)
[2022-12-21] MEDS: Famotidine 20 MG TAB PO SCH (09:14)
[2022-12-21] MEDS: Heparin 5,000 UNITS/ML VIAL SC SCH (09:17)
[2022-12-21] MEDS: Nitroglycerin 2% Ointment 1 INCH/1 GM Packet TOP SCH (09:17)
[2022-12-21] MEDS ORDERED: Fioricet 325/50/40 mg Tablet PO PRN (10:39)
[2022-12-21 15:58] VITALS: BP 168/83; TEMP 98.5
[2022-12-21] MEDS ORDERED: NIFEdipine XL 60 MG TAB PO SCH (21:00)
== END 2022-12-21 19:18 | disposition home or self-care (01) | DRG 305 ==
LOC: ERS 11:30 → CCU 18:24 → T4-B 12-19 14:53 → 2NO 12-20 19:01
PROVIDERS: ADMIT Hospitalist; ATTEND Family Medicine
DX: I16.1 Hypertensive emergency (principal); I50.22 Chronic systolic (congestive) heart failure; I42.8 Other cardiomyopathies; N17.9 Acute kidney failure, unspecified; I11.0 Hypertensive heart disease with heart failure; R77.8 Other specified abnormalities of plasma proteins; N18.2 Chronic kidney disease, stage 2 (mild); F19.10 Other psychoactive substance abuse, uncomplicated; Z79.899 Other long term (current) drug therapy; Z79.82 Long term (current) use of aspirin
CPT/HCPCS: 36415; 36416; 71045; 80048; 80053; 80061; 80306; 83880; 84443; 84484; 85025; 93005; 93010; 93306; 94760; 96365; 96366; 96375; J1644; J1940

== ENCOUNTER 2023-01-01 21:03 | Observation (INO) | payer SELFPAY ==
[2023-01-01 22:50] LABS: #Eosinphils 0.1 thou/uL (0.0-0.7); #Monocytes 0.8 thou/uL (0.11-0.59); #Neutrophils 6.4 thou/uL (1.40-6.50); %Basophils 0.3 % (0.0-1.0); %Eosinophils 0.8 % (0.0-10.0); %Lymphocytes 24.7 % (21.0-51.0); %Monocytes 8.5 % (0.0-10.0); %Neutrophils 65.5 % (42.0-75.0); Hemoglobin 13.2 g/dL (14.0-18.0); Mean Corpuscular HGB CONC 32.2 g/dL (32.0-36.0); Mean Corpuscular Hemoglobin 28.1 pg (27.0-31.0); Mean Corpuscular Volume 87.4 fl (78.0-98.0); Mean Platelet Volume 10.6 fL (7.4-10.4); Platelet Count 290 10x3/uL (130-400); RBC Distribution Width 14.4 % (11.5-14.5); Red Blood Cell (RBC) Count 4.69 mill/uL (4.70-6.10); White Blood Cell (WBC) Count 9.8 10x3/uL (4.8-10.8)
[2023-01-01 23:13] LABS: ALT (SGPT) 35 U/L (8-55); AST (SGOT) 21 U/L (5-34); Alkaline Phosphatase 69 U/L (40-110); Anion Gap 12 mmol/L (10-20); BUN (Urea Nitrogen) 16 mg/dL (8.9-20.6); Bilirubin, Total 0.2 mg/dL (0.2-1.2); Calc. Creatinine Clearance 0 mL/min (70-130); Calcium 9.1 mg/dL (7.8-10.44); Carbon Dioxide 25 mmol/L (22-29); Chloride 107 mmol/L (98-107); Estimated GFR 56; Globulin 3.3 g/dL (2.4-3.5); Glucose 95 mg/dL (70-105); Potassium 4.2 mmol/L (3.5-5.1); Protein, Total 7.3 g/dL (6.0-8.3); Sodium 140 mmol/L (136-145)
[2023-01-01 23:28] LABS: Troponin I 0.061 ng/mL (< 0.028)
[2023-01-02] MEDS ORDERED: hydrALAZINE 20 MG/ML VIAL ONE (02:51)
[2023-01-02] MEDS ORDERED: Acetaminophen 500 MG TAB ONE (02:51)
[2023-01-02] MEDS ORDERED: Acetaminophen 325 MG TAB PO PRN (04:00)
[2023-01-02] MEDS ORDERED: Acetaminophen 650 MG Suppository PR PRN (04:00)
[2023-01-02] MEDS ORDERED: Ondansetron PF 4 MG/2 ML Vial IVP PRN (04:00)
[2023-01-02] MEDS ORDERED: Ondansetron ODT 4 MG TAB PO PRN (04:00)
[2023-01-02] MEDS ORDERED: Nitroglycerin 2% Ointment 1 INCH/1 GM Packet ONE (04:08)
[2023-01-02] MEDS ORDERED: Furosemide 40 MG/4 ML VIAL SLOW IVP SCH (04:15)
[2023-01-02 04:24] LABS: Troponin I 0.059 ng/mL (< 0.028)
[2023-01-02] MEDS ORDERED: NIFEdipine XL 60 MG TAB PO SCH ×3 (05:00→21:00)
[2023-01-02] MEDS: Carvedilol 6.25 MG TAB PO SCH (05:30)
[2023-01-02 08:00] LABS: Troponin I 0.062 ng/mL (< 0.028)
[2023-01-02] MEDS ORDERED: Carvedilol 6.25 MG TAB PO SCH (08:00)
[2023-01-02 08:05] VITALS: BMI 28.1
[2023-01-02] MEDS ORDERED: Nitroglycerin 0.4 MG TAB (25 Tab Bottle) SL PRN (08:29)
[2023-01-02 08:57] VITALS: TEMP 98.1
[2023-01-02] MEDS: hydrALAZINE 25 MG TAB PO SCH ×2 (08:59→14:32)
[2023-01-02] MEDS ORDERED: Lisinopril 20 MG TAB PO SCH (09:00)
[2023-01-02] MEDS ORDERED: Aspirin Chewable 81 MG TAB PO SCH (09:00)
[2023-01-02 12:40] VITALS: BP 158/92
[2023-01-03] MEDS ORDERED: Spironolactone 25 MG TAB PO SCH (08:00)
== END 2023-01-02 16:00 | disposition home or self-care (01) ==
LOC: ERS 21:03 → 2SE 01-02 03:10
PROVIDERS: ADMIT Student in an Organized Health Care Education/Training Program; ATTEND Internal Medicine
DX: R53.81 Other malaise (principal); I13.0 Hypertensive heart and chronic kidney disease with heart failure and stage 1 through stage 4 chronic kidney disease, or unspecified chronic kidney disease; N18.30 Chronic kidney disease, stage 3 unspecified; I50.22 Chronic systolic (congestive) heart failure; R77.8 Other specified abnormalities of plasma proteins; I25.5 Ischemic cardiomyopathy; F17.210 Nicotine dependence, cigarettes, uncomplicated; Z79.82 Long term (current) use of aspirin; Z79.899 Other long term (current) drug therapy
CPT/HCPCS: 36415; 71045; 80053; 83735; 83880; 84443; 84484; 85025; 93005; 94760; 96374; 96375; G0378; J0360; J1940

== ENCOUNTER 2023-02-07 02:36 | Observation (INO) | payer OTHER, SELFPAY ==
[2023-02-07] MEDS ORDERED: Morphine 4 MG/ML VIAL ONE ×2 (03:39→03:46)
[2023-02-07] MEDS ORDERED: Aspirin 325 MG TAB ONE ×2 (03:42→03:47)
[2023-02-07] MEDS ORDERED: Ketorolac Tromethamine 30 MG/ML VIAL ONE ×2 (03:42→03:47)
[2023-02-07] MEDS ORDERED: Ondansetron PF 4 MG/2 ML Vial ONE ×2 (03:42→03:47)
[2023-02-07 04:21] LABS: #Eosinphils 0.1 thou/uL (0.0-0.7); #Neutrophils 6.6 thou/uL (1.40-6.50); %Basophils 0.4 % (0.0-1.0); %Lymphocytes 23.6 % (21.0-51.0); %Monocytes 10.2 % (0.0-10.0); %Neutrophils 64.6 % (42.0-75.0); Hematocrit 38.8 % (42.0-52.0); Hemoglobin 12.7 g/dL (14.0-18.0); Mean Corpuscular HGB CONC 32.7 g/dL (32.0-36.0); Mean Corpuscular Hemoglobin 27.9 pg (27.0-31.0); Mean Corpuscular Volume 85.3 fl (78.0-98.0); Mean Platelet Volume 10.9 fL (7.4-10.4); Platelet Count 241 10x3/uL (130-400); RBC Distribution Width 13.7 % (11.5-14.5); Red Blood Cell (RBC) Count 4.55 mill/uL (4.70-6.10); White Blood Cell (WBC) Count 10.2 10x3/uL (4.8-10.8)
[2023-02-07 04:51] LABS: PTT 30.1 sec (22.9-36.1); Prothrombin Time 13.7 sec (12.0-14.7)
[2023-02-07 06:12] LABS: Chloride 104 mmol/L (98-107); Potassium 3.8 mmol/L (3.5-5.1); Sodium 140 mmol/L (136-145)
[2023-02-07 06:13] LABS: Anion Gap 12 mmol/L (10-20); BUN (Urea Nitrogen) 19 mg/dL (8.9-20.6); Calc. Creatinine Clearance 0 mL/min (70-130); Carbon Dioxide 28 mmol/L (22-29); Estimated GFR 65; Glucose 87 mg/dL (70-105); Troponin I 0.037 ng/mL (< 0.028)
[2023-02-07 06:18] LABS: ALT (SGPT) 13 U/L (8-55); AST (SGOT) 16 U/L (5-34); Albumin 4.1 g/dL (3.5-5.0); Alkaline Phosphatase 62 U/L (40-110); Bilirubin, Total Less than 0.2 mg/dL (0.2-1.2); Calcium 9.5 mg/dL (7.6-10.4); Globulin 3.2 g/dL (2.4-3.5); Lipase 45 U/L (8-78); Protein, Total 7.3 g/dL (6.0-8.3)
[2023-02-07 07:28] LABS: Acetaminophen Less than 10 mcg/mL (10.0-30.0); Alcohol Less than 10.0 mg/dL (Less than 10); Salicylate Less than 8.0 mg/dL (15.0-30.0)
[2023-02-07 08:22] LABS: Magnesium 1.9 mg/dL (1.6-2.6)
[2023-02-07 08:28] VITALS: BMI 28.0
[2023-02-07] MEDS ORDERED: Potassium Chloride 20 MEQ TAB PO SCH (09:00)
[2023-02-07] MEDS ORDERED: Magnesium 2 GM/50 ML(in water) 2 GM in Premix Bag 1 BAG IVPB SCH (09:00)
[2023-02-07] MEDS ORDERED: Ondansetron ODT 4 MG TAB PO PRN (09:02)
[2023-02-07] MEDS ORDERED: Acetaminophen 325 MG TAB PO PRN (09:02)
[2023-02-07] MEDS ORDERED: Senokot S 8.6-50 MG TAB PO PRN (09:02)
[2023-02-07] MEDS ORDERED: Calcium Carbonate 500 MG ChewTAB PO PRN (09:02)
[2023-02-07] MEDS ORDERED: Ondansetron PF 4 MG/2 ML Vial IVP PRN (09:02)
[2023-02-07] MEDS ORDERED: Lisinopril 20 MG TAB PO SCH ×2 (09:15→21:00)
[2023-02-07] MEDS ORDERED: NIFEdipine XL 60 MG ER.TAB PO SCH ×2 (09:15→21:00)
[2023-02-07] MEDS ORDERED: Carvedilol 6.25 MG TAB PO SCH ×2 (09:15→21:00)
[2023-02-07] MEDS ORDERED: Iopamidol-370 76% 500 ML MDV (1 ML CHARGE) ONE (09:43)
[2023-02-07] MEDS ORDERED: Magnesium 2 GM/50 ML BAG (IN WATER) ONE (10:01)
[2023-02-07] MEDS ORDERED: Potassium Chloride 20 MEQ TAB ONE (10:01)
[2023-02-07] MEDS ORDERED: Lisinopril 10 MG TAB ONE (10:01)
[2023-02-07 10:57] LABS: Troponin I 0.039 ng/mL (< 0.028)
[2023-02-07 16:06] VITALS: BP 137/78; TEMP 98.3
[2023-02-08] MEDS ORDERED: Furosemide 40 MG TAB PO SCH (09:00)
== END 2023-02-07 15:43 | disposition home or self-care (01) ==
LOC: ERS 02:36 → ERHOLD 06:46
PROVIDERS: ADMIT Internal Medicine; ATTEND Internal Medicine
DX: R07.2 Precordial pain (principal); I13.0 Hypertensive heart and chronic kidney disease with heart failure and stage 1 through stage 4 chronic kidney disease, or unspecified chronic kidney disease; I50.22 Chronic systolic (congestive) heart failure; N18.2 Chronic kidney disease, stage 2 (mild); E87.6 Hypokalemia; E83.42 Hypomagnesemia; I25.5 Ischemic cardiomyopathy; R77.8 Other specified abnormalities of plasma proteins; D63.1 Anemia in chronic kidney disease; F17.210 Nicotine dependence, cigarettes, uncomplicated; Z79.899 Other long term (current) drug therapy; Z79.82 Long term (current) use of aspirin
CPT/HCPCS: 36415; 71045; 71275; 74174; 80053; 80307; 83690; 83735; 83880; 84443; 84484; 85025; 85610; 85730; 93005; 96374; 96375; G0378; J1650; J1885; J2270; J2405; J3475; Q9967

== ENCOUNTER 2023-02-22 00:34 | Observation (INO) | payer OTHER ==
[2023-02-22 01:24] LABS: #Basophils 0.1 thou/uL (0.0-0.2); #Eosinphils 0.1 thou/uL (0.0-0.7); #Monocytes 0.8 thou/uL (0.11-0.59); #Neutrophils 6.5 thou/uL (1.40-6.50); %Basophils 0.5 % (0.0-1.0); %Eosinophils 0.9 % (0.0-10.0); %Lymphocytes 24.6 % (21.0-51.0); %Monocytes 8.2 % (0.0-10.0); %Neutrophils 65.6 % (42.0-75.0); Hematocrit 40.5 % (42.0-52.0); Hemoglobin 13.2 g/dL (14.0-18.0); Mean Corpuscular HGB CONC 32.6 g/dL (32.0-36.0); Mean Corpuscular Hemoglobin 28.1 pg (27.0-31.0); Mean Corpuscular Volume 86.2 fl (78.0-98.0); Mean Platelet Volume 11.2 fL (7.4-10.4); Platelet Count 241 10x3/uL (130-400); RBC Distribution Width 14.2 % (11.5-14.5)
[2023-02-22 01:41] LABS: ALT (SGPT) 19 U/L (8-55); AST (SGOT) 20 U/L (5-34); Albumin 4.1 g/dL (3.5-5.0); Alkaline Phosphatase 60 U/L (40-110); Anion Gap 15 mmol/L (10-20); BUN (Urea Nitrogen) 19 mg/dL (8.9-20.6); Bilirubin, Total Less than 0.2 mg/dL (0.2-1.2); Calc. Creatinine Clearance 0 mL/min (70-130); Carbon Dioxide 22 mmol/L (22-29); Chloride 109 mmol/L (98-107); Estimated GFR 64; Globulin 3.3 g/dL (2.4-3.5); Glucose 98 mg/dL (70-105); Potassium 4.2 mmol/L (3.5-5.1); Protein, Total 7.4 g/dL (6.0-8.3); Sodium 142 mmol/L (136-145)
[2023-02-22 01:44] LABS: Troponin I 0.041 ng/mL (< 0.028)
[2023-02-22] MEDS ORDERED: Aspirin Chewable 81 MG TAB ONE (01:57)
[2023-02-22 05:05] LABS: Troponin I 0.035 ng/mL (< 0.028)
[2023-02-22] MEDS ORDERED: Ondansetron ODT 4 MG TAB PO PRN (05:22)
[2023-02-22] MEDS ORDERED: Acetaminophen 325 MG TAB PO PRN (05:22)
[2023-02-22 05:23] LABS: Amphetamine Not Detected (NotDetected); Barbiturates Screen Not Detected (NotDetected); Benzodiazepine Screen Not Detected (NotDetected); Cocaine Metabolite Screen Not Detected (NotDetected); Methadone Not Detected (NotDetected); Methamphetamine Not Detected (NotDetected); Opiate Screen Not Detected (NotDetected); Oxycodone Screen Not Detected (NotDetected); Phencyclidine (PCP) Not Detected (NotDetected); THC/Cannabinoid Screen Not Detected (NotDetected); Tricyclic Screen Not Detected (NotDetected)
[2023-02-22 05:39] LABS: Bacteria/HPF None Seen HPF (None Seen); Bilirubin Negative (Negative); Blood, Urine Negative (Negative); CAUTI Indications for Culture Dysuria,urgency,freq; Clarity Clear (Clear); Glucose, Urine (Dipstick) Normal (Negative); Ketone, Urine Negative (Negative); Leukocyte 25 Leu/uL (Negative); Nitrite Negative (Negative); Protein, Urine (Dipstick) 30 mg/dL (Neg-Trace); RBC/HPF 0-3 HPF (0-3); Specific Gravity, Urine 1.034 (1.002-1.036); Squamous Epithelial None Seen HPF (0-3); Urobilinogen Normal mg/dL (Less than 2)
[2023-02-22 05:40] LABS: Urine Culture Reflex No No
[2023-02-22 06:07] VITALS: BMI 28.3
[2023-02-22 07:27] LABS: Troponin I 0.031 ng/mL (< 0.028)
[2023-02-22] MEDS ORDERED: Spironolactone 25 MG TAB PO SCH (07:30)
[2023-02-22] MEDS ORDERED: Carvedilol 6.25 MG TAB PO SCH (08:00)
[2023-02-22] MEDS ORDERED: NIFEdipine XL 60 MG ER.TAB PO SCH (09:00)
[2023-02-22] MEDS ORDERED: Lisinopril 20 MG TAB PO SCH (09:00)
[2023-02-22] MEDS ORDERED: Furosemide 40 MG TAB PO SCH (09:00)
[2023-02-22] MEDS ORDERED: hydrALAZINE 25 MG TAB PO SCH (09:00)
[2023-02-22 11:51] VITALS: BP 130/74; TEMP 98.1
== END 2023-02-22 14:39 | disposition home or self-care (01) ==
LOC: ERS 00:34 → 2SW 04:16
PROVIDERS: ADMIT Student in an Organized Health Care Education/Training Program; ATTEND Hospitalist
DX: R07.9 Chest pain, unspecified (principal); I13.0 Hypertensive heart and chronic kidney disease with heart failure and stage 1 through stage 4 chronic kidney disease, or unspecified chronic kidney disease; I50.20 Unspecified systolic (congestive) heart failure; N18.9 Chronic kidney disease, unspecified; K21.9 Gastro-esophageal reflux disease without esophagitis; Z79.899 Other long term (current) drug therapy; Z95.818 Presence of other cardiac implants and grafts; Z87.891 Personal history of nicotine dependence
CPT/HCPCS: 36415; 71045; 80053; 80306; 81001; 83690; 83880; 84484; 85025; 93005; G0378

== ENCOUNTER 2023-03-20 08:36 | Emergency (ER) | payer OTHER ==
[2023-03-20 09:05] LABS: #Basophils 0.1 thou/uL (0.0-0.2); #Eosinphils 0.1 thou/uL (0.0-0.7); #Neutrophils 6.1 thou/uL (1.40-6.50); %Basophils 0.5 % (0.0-1.0); %Eosinophils 1.2 % (0.0-10.0); %Lymphocytes 24.6 % (21.0-51.0); %Monocytes 10.3 % (0.0-10.0); %Neutrophils 63.2 % (42.0-75.0); Hematocrit 42.4 % (42.0-52.0); Hemoglobin 13.7 g/dL (14.0-18.0); Mean Corpuscular HGB CONC 32.3 g/dL (32.0-36.0); Mean Corpuscular Hemoglobin 27.5 pg (27.0-31.0); Mean Corpuscular Volume 85.1 fl (78.0-98.0); Mean Platelet Volume 10.4 fL (7.4-10.4); Platelet Count 293 10x3/uL (130-400); RBC Distribution Width 15.1 % (11.5-14.5); Red Blood Cell (RBC) Count 4.98 mill/uL (4.70-6.10); White Blood Cell (WBC) Count 9.7 10x3/uL (4.8-10.8)
[2023-03-20 09:31] LABS: ALT (SGPT) 15 U/L (8-55); AST (SGOT) 16 U/L (5-34); Albumin 3.8 g/dL (3.5-5.0); Alkaline Phosphatase 59 U/L (40-110); Anion Gap 13 mmol/L (10-20); BUN (Urea Nitrogen) 16 mg/dL (8.9-20.6); Bilirubin, Total 0.3 mg/dL (0.2-1.2); Calc. Creatinine Clearance 0 mL/min (70-130); Calcium 9.4 mg/dL (7.8-10.44); Carbon Dioxide 22 mmol/L (22-29); Chloride 107 mmol/L (98-107); Estimated GFR 74; Globulin 3.5 g/dL (2.4-3.5); Glucose 97 mg/dL (70-105); Potassium 3.8 mmol/L (3.5-5.1); Protein, Total 7.3 g/dL (6.0-8.3); Sodium 138 mmol/L (136-145)
[2023-03-20 09:34] LABS: Troponin I 0.028 ng/mL (< 0.028)
[2023-03-20] MEDS ORDERED: Aspirin Chewable 81 MG TAB ONE (10:30)
== END 2023-03-20 10:36 | disposition home or self-care (01) ==
LOC: ERS 08:36
DX: R07.9 Chest pain, unspecified (principal); I11.0 Hypertensive heart disease with heart failure; I50.9 Heart failure, unspecified; F17.210 Nicotine dependence, cigarettes, uncomplicated; Z79.899 Other long term (current) drug therapy
CPT/HCPCS: 36415; 71046; 80053; 84484; 85025; 93005

== ENCOUNTER 2023-06-11 06:04 | Inpatient (IN) | payer OTHER ==
[2023-06-11] MEDS ORDERED: Nitroglycerin 50 MG/250 ML BOT 250 ML ONE (06:14)
[2023-06-11 06:38] LABS: #Basophils 0.1 thou/uL (0.0-0.2); #Eosinphils 0.1 thou/uL (0.0-0.7); #Neutrophils 9.4 thou/uL (1.40-6.50); %Basophils 0.5 % (0.0-1.0); %Lymphocytes 18.9 % (21.0-51.0); %Monocytes 7.4 % (0.0-10.0); %Neutrophils 71.9 % (42.0-75.0); Hematocrit 43.7 % (42.0-52.0); Hemoglobin 14.2 g/dL (14.0-18.0); Mean Corpuscular HGB CONC 32.5 g/dL (32.0-36.0); Mean Corpuscular Volume 86.2 fl (78.0-98.0); Mean Platelet Volume 10.9 fL (7.4-10.4); Platelet Count 259 10x3/uL (130-400); RBC Distribution Width 14.2 % (11.5-14.5); Red Blood Cell (RBC) Count 5.07 mill/uL (4.70-6.10); White Blood Cell (WBC) Count 13.1 10x3/uL (4.8-10.8)
[2023-06-11 07:06] LABS: ALT (SGPT) 18 U/L (8-55); AST (SGOT) 22 U/L (5-34); Albumin 4.1 g/dL (3.5-5.0); Alkaline Phosphatase 76 U/L (40-110); Anion Gap 14 mmol/L (10-20); BUN (Urea Nitrogen) 18 mg/dL (8.9-20.6); Bilirubin, Total 0.2 mg/dL (0.2-1.2); Calc. Creatinine Clearance 0 mL/min (70-130); Calcium 9.6 mg/dL (7.8-10.44); Carbon Dioxide 22 mmol/L (22-29); Chloride 106 mmol/L (98-107); Estimated GFR 57; Glucose 107 mg/dL (70-105); Potassium 4.1 mmol/L (3.5-5.1); Protein, Total 8.1 g/dL (6.0-8.3); Sodium 138 mmol/L (136-145)
[2023-06-11 07:29] LABS: Alcohol Less than 10.0 mg/dL (Less than 10)
[2023-06-11 07:31] LABS: Amphetamine Not Detected (NotDetected); Bacteria/HPF None Seen HPF (None Seen); Barbiturates Screen Not Detected (NotDetected); Benzodiazepine Screen Not Detected (NotDetected); Bilirubin Negative (Negative); Blood, Urine Negative (Negative); CAUTI Indications for Culture Fever or rigors; Clarity Clear (Clear); Cocaine Metabolite Screen Not Detected (NotDetected); Glucose, Urine (Dipstick) Normal (Negative); Ketone, Urine Negative (Negative); Leukocyte Negative Leu/uL (Negative); Methadone Not Detected (NotDetected); Methamphetamine Not Detected (NotDetected); Nitrite Negative (Negative); Opiate Screen Not Detected (NotDetected); Oxycodone Screen Not Detected (NotDetected); Phencyclidine (PCP) Not Detected (NotDetected); Protein, Urine (Dipstick) Negative (Neg-Trace); RBC/HPF None Seen HPF (0-3); Specific Gravity, Urine 1.007 (1.002-1.036); Squamous Epithelial None Seen HPF (0-3); THC/Cannabinoid Screen Not Detected (NotDetected); Tricyclic Screen Not Detected (NotDetected); Urobilinogen Normal mg/dL (Less than 2); WBC/HPF None Seen HPF (0-3)
[2023-06-11 07:32] LABS: Acetaminophen Less than 10 mcg/mL (10.0-30.0); Salicylate Less than 8.0 mg/dL (15.0-30.0)
[2023-06-11 07:41] LABS: Urine Culture Reflex No No
[2023-06-11] MEDS ORDERED: Bisacodyl 10 MG SUPP PR PRN (08:03)
[2023-06-11] MEDS ORDERED: Bisacodyl 5 MG TAB PO PRN (08:03)
[2023-06-11] MEDS ORDERED: Senokot S 8.6-50 MG TAB PO PRN (08:03)
[2023-06-11] MEDS ORDERED: Nitroglycerin 50 MG/250 ML BOT 250 ML IVPB SCH (08:15)
[2023-06-11] MEDS ORDERED: Non-Formulary Item 1 EACH (Hydralazine Hcl [Hydralazine Hcl] 100 MG Tablet) PO SCH (09:00)
[2023-06-11] MEDS ORDERED: Lisinopril 20 MG TAB PO SCH (09:00)
[2023-06-11 10:12] LABS: Hemoglobin A1c 5.5 % (4.0-6.0)
[2023-06-11 10:35] LABS: Troponin I 0.018 ng/mL (< 0.028)
[2023-06-11] MEDS: Aspirin 325 MG TAB PO SCH (10:43)
[2023-06-11] MEDS: hydrALAZINE 25 MG TAB PO SCH (10:47)
[2023-06-11] MEDS: NIFEdipine XL 60 MG ER.TAB PO SCH (10:47)
[2023-06-11] MEDS: Acetaminophen 325 MG TAB PO PRN (10:49)
[2023-06-11] MEDS: Ondansetron PF 4 MG/2 ML Vial IVP PRN (10:50)
[2023-06-11] MEDS: Enoxaparin 40 MG (0.4 mL) SYRINGE SC SCH (10:53)
[2023-06-11 11:09] VITALS: BMI 29.5
[2023-06-11 12:47] LABS: Troponin I 0.023 ng/mL (< 0.028)
[2023-06-11] MEDS: Morphine 2 MG/ML VIAL SLOW IVP PRN (14:52)
[2023-06-11] MEDS: Carvedilol 6.25 MG TAB PO SCH (17:50)
[2023-06-11] MEDS: Metoprolol Tartrate 5 MG (5 mL) VIAL IVP SCH (23:22)
[2023-06-12 03:43] LABS: #Eosinphils 0.1 thou/uL (0.0-0.7); #Monocytes 1.4 thou/uL (0.11-0.59); %Basophils 0.3 % (0.0-1.0); %Eosinophils 0.5 % (0.0-10.0); %Lymphocytes 14.1 % (21.0-51.0); %Monocytes 8.8 % (0.0-10.0); %Neutrophils 75.9 % (42.0-75.0); Hematocrit 44.6 % (42.0-52.0); Hemoglobin 14.7 g/dL (14.0-18.0); Mean Corpuscular Hemoglobin 27.7 pg (27.0-31.0); Mean Corpuscular Volume 84.2 fl (78.0-98.0); Mean Platelet Volume 10.2 fL (7.4-10.4); Platelet Count 273 10x3/uL (130-400); RBC Distribution Width 14.2 % (11.5-14.5); White Blood Cell (WBC) Count 15.8 10x3/uL (4.8-10.8)
[2023-06-12 04:01] LABS: ALT (SGPT) 16 U/L (8-55); AST (SGOT) 17 U/L (5-34); Alkaline Phosphatase 74 U/L (40-110); Bilirubin, Direct 0.1 mg/dL (0.1-0.3); Bilirubin, Total 0.3 mg/dL (0.2-1.2); Protein, Total 7.6 g/dL (6.0-8.3)
[2023-06-12 04:02] LABS: Anion Gap 11 mmol/L (10-20); BUN (Urea Nitrogen) 21 mg/dL (8.9-20.6); Calc. Creatinine Clearance 80 mL/min (70-130); Calcium 9.1 mg/dL (7.8-10.44); Carbon Dioxide 28 mmol/L (22-29); Cardiac Risk 5.6 (Less than 4.5); Chloride 102 mmol/L (98-107); Cholesterol 179 mg/dl (< 200 Desired); Estimated GFR 45; Glucose 100 mg/dL (70-105); HDL Cholesterol 32 mg/dL (>60 Neg Risk); LDL Cholesterol, Calculated 122 mg/dL; Potassium 3.7 mmol/L (3.5-5.1); Sodium 137 mmol/L (136-145); Triglycerides 125 mg/dL (Less than 150)
[2023-06-12] MEDS ORDERED: Spironolactone 25 MG TAB PO SCH (07:30)
[2023-06-12] MEDS: Furosemide 20 MG TAB PO SCH (09:13)
[2023-06-12] MEDS: Aspirin 81 mg Enteric Coated Tablet PO SCH (09:14)
[2023-06-12] MEDS: FLU VACC QS2023-24(6MOS UP)/PF 60 MCG/0.5 ML SYRINGE IM ONE (09:17)
[2023-06-13 00:07] VITALS: TEMP 98
[2023-06-13 05:04] LABS: Anion Gap 11 mmol/L (10-20); BUN (Urea Nitrogen) 25 mg/dL (8.9-20.6); Calc. Creatinine Clearance 86 mL/min (70-130); Calcium 9.3 mg/dL (7.8-10.44); Carbon Dioxide 24 mmol/L (22-29); Chloride 105 mmol/L (98-107); Estimated GFR 49; Glucose 100 mg/dL (70-105); Magnesium 1.9 mg/dL (1.6-2.6); Sodium 136 mmol/L (136-145)
[2023-06-13 05:22] LABS: #Basophils 0.1 thou/uL (0.0-0.2); #Monocytes 1.2 thou/uL (0.11-0.59); #Neutrophils 9.3 thou/uL (1.40-6.50); %Basophils 0.4 % (0.0-1.0); %Eosinophils 0.3 % (0.0-10.0); %Lymphocytes 19.6 % (21.0-51.0); %Monocytes 9.2 % (0.0-10.0); %Neutrophils 70.2 % (42.0-75.0); Hematocrit 47.7 % (42.0-52.0); Hemoglobin 15.6 g/dL (14.0-18.0); Mean Corpuscular HGB CONC 32.7 g/dL (32.0-36.0); Mean Corpuscular Hemoglobin 28.4 pg (27.0-31.0); Mean Corpuscular Volume 86.7 fl (78.0-98.0); Mean Platelet Volume 11.2 fL (7.4-10.4); Platelet Count 266 10x3/uL (130-400); RBC Distribution Width 14.5 % (11.5-14.5); White Blood Cell (WBC) Count 13.3 10x3/uL (4.8-10.8)
[2023-06-13 08:07] VITALS: BP 126/95
== END 2023-06-13 10:59 | disposition home or self-care (01) | DRG 305 ==
LOC: SUATTDRO 06:04 → ERS 06:04 → IMCU/EMU 08:06
PROVIDERS: ADMIT Family Medicine; ATTEND Family Medicine
DX: I16.1 Hypertensive emergency (principal); N17.9 Acute kidney failure, unspecified; I50.22 Chronic systolic (congestive) heart failure; I42.8 Other cardiomyopathies; F17.210 Nicotine dependence, cigarettes, uncomplicated; N18.2 Chronic kidney disease, stage 2 (mild); D72.829 Elevated white blood cell count, unspecified; I13.0 Hypertensive heart and chronic kidney disease with heart failure and stage 1 through stage 4 chronic kidney disease, or unspecified chronic kidney disease; R73.9 Hyperglycemia, unspecified; Z91.148 Patient's other noncompliance with medication regimen for other reason; Z79.899 Other long term (current) drug therapy; I25.2 Old myocardial infarction
CPT/HCPCS: 36415; 71045; 80048; 80053; 80061; 80076; 80306; 80307; 81001; 83036; 83735; 84484; 85025; 86850; 86900; 86901; 93005; 93010; 94760; 96365; 96366; J1650; J2272; J2405